=== PATIENT | female | born 2000 | race African-American/Black ===

== ENCOUNTER 2020-07-25 15:44 | Emergency (ER) | payer BC, MEDICAID ==
[~2020-07-25] VITALS: Ht 160 cm; Wt 50.0 kg
[2020-07-25 17:11] LABS: HEMATOCRIT 37.9 % (36.0-48.0); HEMOGLOBIN 12.2 g/dL (12.0-16.0); MEAN CORPUSCULAR HEMOGLOBIN 25.9 pg (28.0-32.0); MEAN CORPUSCULAR VOLUME 80.5 fL (81.0-99.0); PLATELET 174 x1000/uL (130-400); RED BLOOD CELL COUNT 4.71 mill/uL (4.2-5.4); RED CELL DISTRIBUTION WIDTH 12.9 % (11.6-14.6)
[2020-07-25 17:13] LABS: CHLORIDE 112 mEq/L (98-107)
[2020-07-25 17:16] LABS: HCG SCREEN NEGATIVE
[2020-07-25 19:45] VITALS: BP 117/73
== END 2020-07-25 19:55 | disposition home or self-care (01) ==
LOC: ER 15:44
DX: I95.1 Orthostatic hypotension (principal)
CPT/HCPCS: 36415; 80048; 81025; 84703; 85027; 93005; 99284